=== PATIENT | female | born 1995 | race American Indian/Alaskan Native ===

== ENCOUNTER 2019-10-03 02:59 | Emergency (ER) | payer OTHER ==
[2019-10-03 03:06] VITALS: BP 106/54
[2019-10-03] MEDS ORDERED: ACETAMINOPHEN 325 MG TAB PO ONE (03:10)
[2019-10-03] MEDS ORDERED: ACETAMINOPHEN 325 MG TAB ONE (03:12)
[2019-10-03 04:50] LABS: Bilirubin,Urine NEG (Negative); Blood,Urine LG (Negative); Color,Urine Yellow (Yellow); Urobilinogen,Urine < 2.0 mg/dL (<2.0)
[2019-10-03 05:12] LABS: HCG Qualitative,Urine Negative (Negative)
[2019-10-03 05:13] LABS: RBC,Urine > 182.0 /HPF (0.0-6.0); WBC,Urine > 182.0 /HPF (0.0-6.0)
--- NOTE | 2019-10-03 07:09 | Emergency Department Report ---
ED Abdominal Pain HPI - General Chief Complaint: Back Pain/Injury Stated Complaint: BACK PAIN Time Seen by Provider: 10/03/19 06:49 Source: patient Mode of arrival: Ambulatory Limitations: No Limitations - History of Present Illness Initial Comments: This pleasant 24-year-old female presents to emergency department with a chief complaint of suprapubic abdominal pain, dysuria, urinary frequency and lower back pain over the past 2 days. Patient denies any injuries. She reports she is also noticed some blood in her urine and has noticed a bit of vaginal discharge. She has a known past medical history, current medication use or known allergies to medications. She reports her pain is a pressure described as 5 out of 10 in severity. MD Complaint: abdominal pain Severity scale (0 -10): 10 - Related Data Previous Rx's Medication Instructions Recorded Last Taken Type Naproxen 500 mg PO BID #20 tablet 10/03/19 Unknown Rx Nitrofurantoin Sweet Grass/M-Cryst 100 mg PO Q12HR #14 capsule 10/03/19 Unknown Rx [Macrobid CAP] Allergies Allergy/AdvReac Type Severity Reaction Status Date / Time No Known Allergies Allergy Verified 10/03/19 03:01 ED Review of Systems ROS: Stated complaint: BACK PAIN Other details as noted in HPI Comment: All other systems reviewed and negative Constitutional: denies: chills, fever Eyes: denies: eye pain, eye discharge, vision change ENT: denies: ear pain, throat pain Respiratory: denies: cough, shortness of breath, wheezing Cardiovascular: denies: chest pain, palpitations Endocrine: no symptoms reported Gastrointestinal: as per HPI, abdominal pain. denies: nausea, diarrhea Genitourinary: as per HPI, urgency, dysuria, frequency, discharge Musculoskeletal: as per HPI, back pain. denies: joint swelling, arthralgia Skin: denies: rash, lesions Neurological: denies: headache, weakness, paresthesias Psychiatric: denies: anxiety, depression Hematological/Lymphatic: denies: easy bleeding, easy bruising ED Past Medical Hx - Past Medical History Previous Medical History?: No - Surgical History Past Surgical History?: No - Family History Family history: no significant - Social History Smoking Status: Never Smoker Substance Use Type: None - Medications Home Medications: Home Medications Medication Instructions Recorded Confirmed Last Taken Type Naproxen 500 mg PO BID #20 tablet 10/03/19 Unknown Rx Nitrofurantoin Sweet Grass/M-Cryst 100 mg PO Q12HR #14 capsule 10/03/19 Unknown Rx [Macrobid CAP] ED Physical Exam - General Limitations: No Limitations General appearance: alert, in no apparent distress - Head Head exam: Present: atraumatic, normocephalic - Eye Eye exam: Present: normal appearance, PERRL, EOMI Pupils: Present: normal accommodation - ENT ENT exam: Present: normal exam, normal orophraynx, mucous membranes moist - Neck Neck exam: Present: normal inspection, full ROM. Absent: tenderness, meningismus - Respiratory Respiratory exam: Present: normal lung sounds bilaterally. Absent: respiratory distress, wheezes, rales, rhonchi, stridor - Cardiovascular Cardiovascular Exam: Present: regular rate, normal rhythm, normal heart sounds. Absent: systolic murmur, diastolic murmur, rubs, gallop - GI/Abdominal GI/Abdominal exam: Present: soft, tenderness (mild tenderness to the suprapubic abdomen, negative McBurney's point tenderness, negative Guerrero sign, no rebound or guarding), normal bowel sounds. Absent: distended, guarding, rebound, rigid - Extremities Exam Extremities exam: Present: normal inspection, full ROM, normal capillary refill. Absent: tenderness, calf tenderness - Back Exam Back exam: Present: normal inspection, full ROM, tenderness (mild paraspinal tenderness to the lumbar area with no midline tenderness to the spine). Absent: CVA tenderness (R), CVA tenderness (L) - Neurological Exam Neurological exam: Present: alert, oriented X3, CN II-XII intact, normal gait. Absent: motor sensory deficit - Psychiatric Psychiatric exam: Present: normal affect, normal mood - Skin Skin exam: Present: warm, dry, intact, normal color. Absent: rash ED Course Vital Signs 10/03/19 03:02 Temperature 97.7 F Pulse Rate 64 Respiratory 18 Rate Blood Pressure 106/54 O2 Sat by Pulse 99 Oximetry ED Medical Decision Making - Lab Data Lab Results 10/03/19 Range/Units Unknown Urine Color Yellow (Yellow) Urine Turbidity Cloudy (Clear) Urine pH 5.0 (5.0-7.0) Ur Specific [place] 1.020 (1.003-1.030) Urine Protein 100 mg/dl (Negative) mg/dL Urine Glucose (UA) Neg (Negative) mg/dL Urine Ketones Tr (Negative) mg/dL Urine Blood Lg (Negative) Urine Nitrite Neg (Negative) Urine Bilirubin Neg (Negative) Urine Urobilinogen < 2.0 (<2.0) mg/dL Ur Leukocyte Esterase Lg (Negative) Urine WBC (Auto) > 182.0 H (0.0-6.0) /HPF Urine RBC (Auto) > 182.0 (0.0-6.0) /HPF U Epithel Cells (Auto) 8.0 (0-13.0) /HPF Urine WBC Clumps 2+ /HPF Urine HCG, Qual Negative (Negative) - Medical Decision Making Patient is nontoxic in no acute distress. Vitals are stable. Abdominal exam is relatively benign other than mild suprapubic tenderness. Urinalysis was consistent with a urinary tract infection which we will treat with Macrobid. Patient has symptoms of a complicated urinary tract infection with no CVA tenderness, fever, vomiting. She had no tenderness over McBurney's point and no fever, vomiting or anorexia making acute appendicitis unlikely. She had no tenderness of the right upper quadrant with negative Guerrero signand again no vomiting making cholecystitis unlikely. She was tolerating by mouth fluids making small bowel obstruction unlikely. She did report some discharge status was fishy odor she states it was similar to be BV which she's had in the past and recommended following up with her [facility]IVE INTERVENTION[facility] or the health department for. She had no concern for an STD at this time due to being a monogamous relationship. I did offer to work her up for an STD, PID or TOA however she declined saying she will follow-up once the UTIs treated if her symptoms persist. She is instructed to return emergently upon ambulation also a change or worsening symptoms. All her questions were answered she verbalized understanding of the diagnosis, treatment plan and follow-up instructions. - Differential Diagnosis UTI, pyelonephritis, appendicitis, Critical care attestation.: If time is entered above; I have spent that time in minutes in the direct care of this critically ill patient, excluding procedure time. ED Disposition Clinical Impression: Acute cystitis Qualifiers: Hematuria presence: with hematuria Qualified Code(s): N30.01 - Acute cystitis with hematuria Disposition: TO HOME OR SELFCARE Is pt being admited?: No Condition: Stable Instructions: Urinary Tract Infection in Women (ED) Prescriptions: Nitrofurantoin Sweet Grass/M-Cryst [Macrobid CAP] 100 mg PO Q12HR #14 capsule Naproxen 500 mg PO BID #20 tablet Referrals: PRIMARY CARE, [Primary Care Provider] - 3-5 Days Forms: Work/School Release Form(ED) Time of Disposition: 07:10
== END 2019-10-03 07:16 | disposition home or self-care (01) ==
LOC: ED 02:59
DX: N30.00 Acute cystitis without hematuria (principal); Z79.899 Other long term (current) drug therapy
CPT/HCPCS: 81001; 81025; 99283